=== PATIENT | male | born 1995 | race African-American/Black ===

== ENCOUNTER 2018-09-07 18:52 | Emergency (ER) | payer OTHER ==
[~2018-09-07] VITALS: Ht 162.6 cm; Wt 64.9 kg
[2018-09-07 20:42] LABS: PLATELET COUNT 249 K/uL (142-355)
[2018-09-07 20:52] LABS: POTASSIUM 3.5 mmol/L (3.6-5.2)
[2018-09-07 21:24] VITALS: BP 125/72; TEMP 98.2
== END 2018-09-07 21:27 | disposition home or self-care (01) ==
LOC: ED 18:52
PROVIDERS: Family Medicine; Internal Medicine
DX: R10.13 Epigastric pain (principal); K59.00 Constipation, unspecified
CPT/HCPCS: 36415; 74022; 80053; 82150; 83690; 85027; 99283

== ENCOUNTER 2018-10-15 19:51 | Emergency (ER) | payer OTHER ==
[~2018-10-15] VITALS: Ht 162.6 cm; Wt 64.9 kg
[2018-10-15 20:34] VITALS: TEMP 98.3
[2018-10-15 22:31] VITALS: BP 112/63
== END 2018-10-15 22:32 | disposition home or self-care (01) ==
LOC: ED 19:51
DX: R10.13 Epigastric pain (principal); K59.00 Constipation, unspecified
CPT/HCPCS: 99282